=== PATIENT | male | born 1950 | race Caucasian/White ===

== ENCOUNTER → 2018-11-24 | Outpatient (CLI) | payer OTHER ==
[2018-11-24 13:51] LABS: BASO % 0.4 % (0.0-1.0); EOS # 0.1 10*3/uL (0.0-0.4); HEMATOCRIT 43.2 % (42.0-52.0); HEMOGLOBIN 14.6 g/dl (14.0-18.0); LYMPH # 2.2 10*3/uL (1.3-4.4); LYMPH % 27.6 % (27.0-41.0); MEAN CORPUSCULAR HGB 33.8 pg (27.0-31.0); MEAN CORPUSCULAR HGB CONC 33.8 g/dl (33.0-37.0); MEAN PLATELET VOLUME 10.4 fl (9.6-12.3); MONO # 0.6 10*3/uL (0.1-1.0); MONO % 7.8 % (3.0-9.0); NEUT # 5.1 10*3/uL (2.3-7.9); NEUT % 62.7 % (47.0-73.0); PLATELET COUNT AUTOMATED 306 10*3/uL (130-400); RED BLOOD COUNT 4.32 10*6/uL (4.50-5.90); RED CELL DISTRI WIDTH 12.7 % (0-14.5); WHITE BLOOD COUNT 8.1 10*3/uL (4.8-10.8)
[2018-11-24 13:53] LABS: BILIRUBIN NEGATIVE (NEGATIVE); BLOOD NEGATIVE (NEGATIVE); CLARITY SL CLOUDY (CLEAR); COLOR YELLOW (YELLOW); GLUCOSE NEGATIVE (NEGATIVE); KETONE NEGATIVE (NEGATIVE); LEUKO ESTERASE NEGATIVE (NEGATIVE); NITRITE NEGATIVE (NEGATIVE); SPECIFIC GRAVITY <= 1.005 (1.005-1.030); UROBILINOGEN 0.2 E.U./dl (0.2-1.0)
[2018-11-24 14:02] LABS: EPITHELIAL CELLS 0-2
[2018-11-24 14:28] LABS: ALBUMIN 4.1 gm/dl (3.1-4.5); ALKALINE PHOSPHATASE 52 U/L (45-117); BUN 12 mg/dl (7-24); CHLORIDE 105 mmol/L (98-107); CHOLESTEROL 190 mg/dL (<200); CREATININE 1.02 mg/dL (0.70-1.30); HDL CHOLESTEROL 59 mg/dl (40-60); LDL CHOLESTEROL 105 mg/dL (9-159); POTASSIUM 4.3 mmol/L (3.5-5.1); SGOT/AST 22 IU/L (3-35); SGPT/ALT 38 U/L (12-78); SODIUM 138 mmol/L (136-145); TOTAL PROTEIN 7.6 gm/dL (6.4-8.2); TRIGLYCERIDES 131 mg/dl (<150); VLDL CHOLESTEROL 26 mg/dL (6-40)
[2018-11-24 14:37] LABS: PLATELET SUFFICIENCY NORMAL (NORMAL); TOTAL CELLS COUNTED 100 #CELLS
== END | disposition home or self-care (01) ==
LOC: LAB 13:14 → US 14:00
PROVIDERS: Family Medicine
DX: Z12.5 Encounter for screening for malignant neoplasm of prostate (principal); M54.2 Cervicalgia; R22.1 Localized swelling, mass and lump, neck; I10 Essential (primary) hypertension; Z79.899 Other long term (current) drug therapy

== ENCOUNTER → 2024-07-07 | Outpatient (CLI) | payer OTHER ==
[~2024-07-07] MED LIST: Regadenoson 0.4 MG/5 ML SYR IV ONE; Technetium Tc 99M Tetrofosmi 0.23 MG KIT IJ SCH
== END | disposition home or self-care (01) ==
LOC: CARD 00:45
PROVIDERS: ATTEND Family Medicine
DX: I45.10 Unspecified right bundle-branch block (principal); R06.09 Other forms of dyspnea; R06.02 Shortness of breath

== ENCOUNTER → 2024-07-11 | Outpatient (CLI) | payer MEDICARE | END | disposition home or self-care (01) | LOC: US 09:00 → CARD 10:30 | PROVIDERS: ATTEND Family Medicine | DX: Z13.6 Encounter for screening for cardiovascular disorders (principal); I35.8 Other nonrheumatic aortic valve disorders; R06.09 Other forms of dyspnea ==

== ENCOUNTER → 2024-07-20 | Outpatient (CLI) | payer MEDICARE | END | disposition home or self-care (01) | LOC: CT 00:56 | PROVIDERS: ATTEND Family Medicine | DX: Z12.2 Encounter for screening for malignant neoplasm of respiratory organs (principal); J43.9 Emphysema, unspecified; J94.1 Fibrothorax; J98.4 Other disorders of lung; J90 Pleural effusion, not elsewhere classified; R91.1 Solitary pulmonary nodule; Z87.891 Personal history of nicotine dependence ==

== ENCOUNTER → 2024-08-02 | Outpatient (CLI) | payer MEDICARE ==
[~2024-08-02] MED LIST changes: +IOHEXOL 300 MG/ML 100 ML VIAL IV ONE; +IOHEXOL 300 MG/ML 100 ML VIAL ONE; -Regadenoson 0.4 MG/5 ML SYR IV ONE; -Technetium Tc 99M Tetrofosmi 0.23 MG KIT IJ SCH
== END | disposition home or self-care (01) ==
LOC: CT 00:32
PROVIDERS: ATTEND Family Medicine
DX: J43.9 Emphysema, unspecified (principal); J98.11 Atelectasis; J94.8 Other specified pleural conditions; I25.10 Atherosclerotic heart disease of native coronary artery without angina pectoris; K74.60 Unspecified cirrhosis of liver; R91.8 Other nonspecific abnormal finding of lung field

== ENCOUNTER → 2024-11-09 | Outpatient (CLI) | payer MEDICARE ==
[~2024-11-09] MED LIST changes: -IOHEXOL 300 MG/ML 100 ML VIAL IV ONE; -IOHEXOL 300 MG/ML 100 ML VIAL ONE; +IOHEXOL 350 MG/ML 100 ML VIAL IV ONE; +SODIUM CHLORIDE 0.9% 100 ML BAG IV ONE; +SODIUM CHLORIDE 0.9% 100 ML IV ONE
== END | disposition home or self-care (01) ==
LOC: CT 01:52
PROVIDERS: ATTEND Family Medicine
DX: J90 Pleural effusion, not elsewhere classified (principal); J43.9 Emphysema, unspecified; I71.22 Aneurysm of the aortic arch, without rupture; I25.10 Atherosclerotic heart disease of native coronary artery without angina pectoris; K76.0 Fatty (change of) liver, not elsewhere classified

== ENCOUNTER → 2024-12-02 | Outpatient (CLI) | payer MEDICARE | END | disposition home or self-care (01) | LOC: US 00:08 | PROVIDERS: ATTEND Physician Assistant | DX: R22.0 Localized swelling, mass and lump, head (principal) ==

== ENCOUNTER → 2024-12-26 | Outpatient (CLI) | payer MEDICARE ==
[2024-12-26 12:59] LABS: BASO # 0.0 10*3/uL (0.0-0.1); BASO % 0.3 % (0.0-1.0); EOS # 0.1 10*3/uL (0.0-0.4); EOS % 0.9 % (1.0-4.0); MEAN CELL VOLUME 100.5 fl (80.0-94.0); MEAN CORPUSCULAR HGB 34.1 pg (27.0-31.0); MEAN PLATELET VOLUME 10.0 fl (9.6-12.3); MONO # 0.8 10*3/uL (0.1-1.0); MONO % 8.6 % (3.0-9.0); NEUT # 6.3 10*3/uL (2.3-7.9); NEUT % 72.1 % (47.0-73.0); NUCLEATED RED BLOOD CELL 0.0 % (0.0-0.0); NUCLEATED RED BLOOD CELL 0.0 10*3/uL (0.0-0.0); PLATELET COUNT AUTOMATED 293 10*3/uL (130-400); RED CELL DISTRI WIDTH 13.9 % (0-14.5)
[2024-12-26 13:49] LABS: BUN 17 mg/dl (9-23); SGPT/ALT 36 U/L (5-49)
== END | disposition home or self-care (01) ==
LOC: LAB 12:42
PROVIDERS: ATTEND Family Medicine
DX: D75.89 Other specified diseases of blood and blood-forming organs (principal); E80.6 Other disorders of bilirubin metabolism; R74.8 Abnormal levels of other serum enzymes; K74.01 Hepatic fibrosis, early fibrosis; R74.01 Elevation of levels of liver transaminase levels; K74.60 Unspecified cirrhosis of liver